=== PATIENT | female | born 1950 | race Caucasian/White ===

== ENCOUNTER 2016-12-06 11:49 | Emergency (ER) | payer MEDICAID, MEDICARE ==
[2016-12-06 12:04] VITALS: TEMP 97.7; BMI 27.3
[2016-12-06] MEDS ORDERED: SODIUM CHLORIDE 0.9% 10 ML FLUSH FLUSH PRN (12:12)
--- NOTE | 2016-12-06 12:39 | DIRPT ---
CLINICAL DATA: Intermittent, non radiating mid chest pain for 3 days with shortness of breath EXAM: PORTABLE CHEST 1 VIEW COMPARISON: 03/23/2014 FINDINGS: Normal heart size and mediastinal contours. Haziness of the lower chest is attributed to soft tissue attenuation. No acute infiltrate or edema. No effusion or pneumothorax. Remote posterior right rib fractures. No acute osseous findings. IMPRESSION: No evidence of active disease. Electronically Signed By: Juan Leyva M.D. On: 12/06/2016 12:36
[2016-12-06] MEDS ORDERED: ASPIRIN 325 MG TAB PO ONE (13:02)
--- NOTE | 2016-12-06 13:09 | EDPRACDOC ---
- General Information Chief Complaint: Chest Pain Stated Complaint: CHEST PAIN, SHOB Time Seen by Provider: 12/06/16 12:26 Information Source: Patient Mode of Arrival: Wheelchair Home Medications: Home Medications Citalopram (anti-depressant) [Celexa] 40 mg PO DAILY 07/28/14 Aspirin 325 mg PO DAILY #30 tab 12/06/16 Calcium Carbonate [Calcium] 600 mg PO DAILY 12/06/16 Ferrous Sulfate 28 mg PO DAILY 12/06/16 Lacosamide [Vimpat] 100 mg PO BID 12/06/16 Pramipexole Di-HCl [Pramipexole Dihydrochloride] 0.25 - 0.5 mg PO HS 12/06/16 Topiramate [Topamax] 50 mg PO BID 12/06/16 Allergies/Adverse Reactions: Allergies Allergy/AdvReac Type Severity Reaction Status Date / Time Penicillins Allergy Mild Hives* Verified 12/06/16 13:24 acetazolamide [From Diamox] Allergy Hives* Verified 12/06/16 13:24 acetazolamide sodium Allergy Hives* Verified 12/06/16 13:24 [From Diamox] iodine [Iodine] Allergy Hives* Verified 12/06/16 13:24 - History of Present Illness Onset: this am HPI: PT PRESENTS TODAY WITH INTERMITTENT CP X 2 WEEKS. PT STATES THE PAINS OCCUR SUDDENLY, SHARP/BURNING IN NATURE, NON-RADIATING W/OUT WORSENING/ALLEVIATING FACTORS. STATES THE PAINS "TAKE HER BREATH AWAY". DENIES FEVER, COUGH/ CONGESTION, ABD PAIN, N/V/D. PT POOR HISTORIAN, BUT NO KNOWN PMH OF [place]; UNSURE OF FAMILY MEDICAL HISTORY, UNSURE OF STRESS. Chest Pain Location: Reports: Substernal Pain Radiation: Reports: None Symptoms Occur: Reports: Suddenly Cardiac Risk Factors: Reports: Other (UNKNOWN) Cardiac History of: Reports: None (UNKNOWN) PE Risk Factors: Reports: None Medications within 24 Hours: Reports: None Prehospital Care: Reports: None Pain Came On: Reports: Suddenly Pain Status: Resolved Pain Description: Reports: Sharp, Burning Pain Severity: Severe Pain Worsens With: Reports: Nothing Pain Improves With: Reports: Nothing Associated Signs and Symptoms: Reports: SOB ED Past Medical History - History Reviewed Yes Nurses notes reviewed and agree except as marked - Patient Medical History Neurological History: Reports: Seizures Cardiac History: Reports: Hypertension Psychological History: Reports: Anxiety Systemic History: Reports: Diabetes ("hyperglycemia") Additional Past Medical History: VERTIGO Surgical History: Reports: Tonsillectomy/Adnoidectomy - Family Medical History Reports: Hypertension (mother and father), Diabetes (mother), Stroke ( grandparents), Cardiac Disorders (mother and father). Denies: Cancer EDM Review of Systems - Review of Systems ROS Negative Except as Marked: Yes All systems reviewed and were negative except as marked Constitutional: No Symptoms Reported Respiratory: Shortness of Breath Cardiovascular: Chest Pain Gastrointestinal: No Symptoms Reported Genitourinary: No Symptoms Reported Neurological: No Symptoms Reported Musculoskeletal: No Symptoms Reported Integumentary: No Symptoms Reported - Physical Exam Constitutional: Alert (Awake), No apparent distress Oriented to: Time, Person, Place Last recorded Vital Signs: Last Vital Signs Temp 97.7 F 12/06/16 12:01 Pulse 75 12/06/16 12:01 Resp 18 12/06/16 12:01 BP 134/68 12/06/16 12:01 Pulse Ox 100 12/06/16 12:01 Oxygen Pulse Oxygen Saturation 100 O2 Device Room Air Oxygen Flow Rate Fraction of Inspired Oxygen ( FIO2) - HEENT Head: Normal Eye Exam: Normal Neck: Normal, Denies Pain, Midline - Respiratory/Cardiovascular Respiratory: Normal - CTA Cardiovascular: Normal - GI Palpation: Normal Tenderness: Non tender - Musculoskeletal Back: Normal Extremities: Normal - Integumentary Skin: Normal Lymphatics: Normal - Neurologic Mood Description: Normal Thought: Coherent Perception: Normal ED Chest Pain Exam - Respiratory/Cardiovascular Respiratory: Normal - CTA Cardiovascular/Chest: Normal Radial Pulse: Normal Chest Palpation: Normal - Action ASA given in the ED: Yes - Results 12/06/16 12:30 12/06/16 12:30 - EKG EKG #1 EKG Time: 11:59 -: Yes EKG interpreted by me Rate: bpm: 72 [place]: Normal Rhythm: NSR Block: None Hypertrophy: None ST: Normal - Additional Information PT HAS NOT HAD ANY PAIN WHILE HERE. CASE DISCUSSED WITH DR. GONZALEZ. PTS HEART SCORE 2 (0.8-1.7% CHANCE OF CORONARY EVENT). WILL START PT ON ASA AND FOLLOW UP WITH PCP. Decision Time to Discharge: 13:50 - Departure Disposition: Home Condition: Stable Final Diagnosis: Atypical chest pain Instructions: Chest Pain (ED), Chest Wall Pain Education/Counseling Given To: Patient Education/Counseling Given Regarding: Diagnosis, Treatment, Follow Up Referrals: Kristal Louis MD [Primary Care Provider] - One Week Prescriptions: Aspirin 325 mg PO DAILY #30 tab Additional Instructions: TAKE MEDICATION WITH FOOD TO PREVENT STOMACH IRRITATION. FOLLOW UP WITH PCP REGARDING POSSIBLE NEED OF OUTPATIENT STRESS TEST OR ECHO. OF COURSE, FEEL FREE TO RETURN TO ED FOR ANY WORSE/CONCERNING SYMPTOMS.
[2016-12-06 13:13] LABS: AUTOMATED BASOPHIL 1.4 % (0-2); AUTOMATED EOSINOPHIL 4.4 % (0-5); AUTOMATED LYMPH 28.6 % (17-44); AUTOMATED MONOCYTE 7.4 % (3-10); AUTOMATED NEUTROPHIL 58.2 % (45-76); MPV 8.4 fL (7.4-10.4)
[2016-12-06 13:18] LABS: BLOOD UREA NITROGEN 14 MG/DL (7-17); CALCIUM 9.5 MG/DL (8.4-10.2); CALCULATED OSMOLALITY 278 MOs/Kg (270-290); CHLORIDE 109 mEq/L (98-107); GLUCOSE 91 MG/DL (70-99); SODIUM LEVEL 144 mEq/L (137-146); TOTAL PROTEIN 7.3 G/DL (6.3-8.2)
[2016-12-06 13:24] LABS: PARTIAL THROMB. TIME 26.5 SEC (22-35)
[2016-12-06 13:54] VITALS: BP 129/63; PULSE 72
== END 2016-12-06 14:03 | disposition home or self-care (01) ==
LOC: ED 11:49
DX: R07.89 Other chest pain (principal); I10 Essential (primary) hypertension; F41.9 Anxiety disorder, unspecified; Z79.899 Other long term (current) drug therapy
CPT/HCPCS: 36415; 71010; 80053; 84484; 85025; 85610; 85730; 93005; 99284; A9270; J3490